=== PATIENT | male | born 1950 | race Caucasian/White ===

== ENCOUNTER 2022-08-03 10:29 | Inpatient (IN) ==
[2022-08-03 11:49] LABS: Basophils % 0.1 %; Hematocrit 30.9 % (37.5-50.1); Hemoglobin 10.4 g/dL (12.9-16.9); Immature Granulocytes % 0.5 % (0-4); Lymphocytes # 0.7 K/mcL (0.6-4.6); Lymphocytes % 3.8 %; Mean Corpuscular HGB Conc 33.7 g/dL (31.6-35.5); Mean Corpuscular Hemoglobin 32.6 pg (28.0-33.3); Mean Corpuscular Volume 96.9 fL (83.0-100.0); Mean Platelet Volume 10.3 fL (9.4-12.4); Monocytes # 0.8 K/mcL (0.0-1.3); Monocytes % 4.4 %; Neutrophils # 16.6 K/mcL (1.6-8.9); Platelet Count 245 K/mcL (140-400); Red Blood Count 3.19 M/mcL (4.19-5.50); Red Cell Distribution Width 13.2 % (11.5-14.5); Segmented Neutrophils % 91.2 %; White Blood Count 18.2 K/mcL (4.3-11.1)
[2022-08-03 12:07] LABS: Alanine Aminotransferase 4 Units/L (7-52); Albumin 2.8 g/dL (3.5-5.7); Albumin/Globulin Ratio 1.2 (1.1-2.2); Alkaline Phosphatase 70 Units/L (34-104); Aspartate Amino Transferase 11 Units/L (13-39); BUN/Creatinine Ratio 16 (6-26); Bilirubin,Total 0.8 mg/dL (0.3-1.0); Blood Urea Nitrogen 14 mg/dL (8-23); Calcium 10.6 mg/dL (8.6-10.3); Carbon Dioxide 22 mEq/L (23-29); Chloride 105 mEq/L (98-107); Globulin 2.4 g/dL (2.4-3.5); Glucose 102 mg/dL (70-105); Osmolality,Calculated 283 (280-300); Potassium 3.5 mEq/L (3.5-5.1); Sodium 136 mEq/L (136-145); Total Protein 5.2 g/dL (6.4-8.9)
[2022-08-03] MEDS ORDERED: Iopamidol - 370 500 ML MLS IVP ONE (12:54)
[2022-08-03] MEDS ORDERED: Clindamycin 600 MG/50 ML 600 MG/50 ML IV.SOLN IVPB STA (14:21)
[2022-08-03] MEDS ORDERED: *HR* HYDROmorphone (PF) 1 MG/ML SYRINGE IVP ONE (14:43)
[2022-08-03] MEDS ORDERED: Melatonin 3 MG TABLET PO PRN (16:55)
[2022-08-03] MEDS ORDERED: Ondansetron 4 MG/2 ML VIAL IVP PRN (16:55)
[2022-08-03] MEDS ORDERED: Acetaminophen 325 MG TABLET PO PRN (16:55)
[2022-08-03] MEDS ORDERED: Naloxone 0.4 MG/ML INJ IVP PRN (16:55)
[2022-08-03] MEDS ORDERED: Lactulose Oral Soln 20 GM/30 ML UDC PO PRN (17:20)
[2022-08-03] MEDS ORDERED: D5% in 0.9% NACL 1,000 ML IVC SCH (17:30)
[2022-08-03] MEDS: Pantoprazole 40 MG VIAL IVP SCH (20:14)
[2022-08-03] MEDS ORDERED: Lactulose Oral Soln 20 GM/30 ML UDC PO SCH (21:00)
[2022-08-03] MEDS: Magnesium Oxide 400 MG TABLET PO SCH (22:58)
[2022-08-03] MEDS: Gabapentin 100 MG CAPSULE PO SCH (22:59)
[2022-08-03] MEDS: Piperacillin/Tazobactam 3.375 GM in 0.9 % Sodium Chloride Mini Bag 100 ML IVPB SCH (23:56)
[2022-08-04 05:09] LABS: Hematocrit 28.2 % (37.5-50.1); Hemoglobin 9.5 g/dL (12.9-16.9); Mean Corpuscular HGB Conc 33.7 g/dL (31.6-35.5); Mean Corpuscular Hemoglobin 32.9 pg (28.0-33.3); Mean Corpuscular Volume 97.6 fL (83.0-100.0); Mean Platelet Volume 10.3 fL (9.4-12.4); Platelet Count 179 K/mcL (140-400); Red Blood Count 2.89 M/mcL (4.19-5.50); Red Cell Distribution Width 13.5 % (11.5-14.5); White Blood Count 15.8 K/mcL (4.3-11.1)
[2022-08-04] MEDS: Pantoprazole 40 MG VIAL IVP SCH ×2 (05:12→18:45)
[2022-08-04 05:29] LABS: Alanine Aminotransferase 4 Units/L (7-52); Albumin 2.5 g/dL (3.5-5.7); Albumin/Globulin Ratio 1.1 (1.1-2.2); Alkaline Phosphatase 59 Units/L (34-104); Aspartate Amino Transferase 9 Units/L (13-39); BUN/Creatinine Ratio 18 (6-26); Bilirubin,Total 0.7 mg/dL (0.3-1.0); Blood Urea Nitrogen 15 mg/dL (8-23); Calcium 10.2 mg/dL (8.6-10.3); Carbon Dioxide 25 mEq/L (23-29); Chloride 105 mEq/L (98-107); Chol/HDL Ratio 3.5 (0-4.9); Cholesterol 87 mg/dL (< 200); Globulin 2.3 g/dL (2.4-3.5); Glucose 122 mg/dL (70-105); HDL Cholesterol 25 mg/dL (40-59); LDL Cholesterol,Calculated 45 mg/dL (< 100); Magnesium 1.3 mg/dL (1.6-2.6); Osmolality,Calculated 282 (280-300); Potassium 3.2 mEq/L (3.5-5.1); Sodium 135 mEq/L (136-145); Total Protein 4.8 g/dL (6.4-8.9); Triglycerides 85 mg/dL (< 150)
[2022-08-04] MEDS ORDERED: Fluconazole 200 MG/100 ML 100 MG/50 ML BAG IVPB SCH (09:00)
[2022-08-04] MEDS: Piperacillin/Tazobactam 3.375 GM in 0.9 % Sodium Chloride Mini Bag 100 ML IVPB SCH ×3 (10:00→23:27)
[2022-08-04] MEDS: Gabapentin 100 MG CAPSULE PO SCH ×2 (10:28→21:20)
[2022-08-04] MEDS: Folic Acid 1 MG TABLET PO SCH (10:28)
[2022-08-04] MEDS: Cholecalciferol (D-3) 1,000 UNIT (25MCG) TABLET PO SCH (10:28)
[2022-08-04] MEDS: Aspirin 81 MG TAB.CHEW PO SCH (10:28)
[2022-08-04] MEDS: Magnesium Oxide 400 MG TABLET PO SCH ×2 (10:28→21:20)
[2022-08-04] MEDS: Thiamine (B-1) 100 MG TABLET PO SCH (10:28)
[2022-08-04] MEDS: Cyanocobalamin (B-12) 1,000 MCG TABLET PO SCH (10:28)
[2022-08-04] MEDS: Fluconazole 200 MG/100 ML 100 MG/50 ML BAG IVPB SCH (11:27)
[2022-08-04] MEDS: D5% in 0.45% NACL w KCl 20 MEQ/1,000 ML MLS IVC SCH (13:02)
[2022-08-04 18:33] LABS: BUN/Creatinine Ratio 17 (6-26); Blood Urea Nitrogen 15 mg/dL (8-23); Calcium 10.1 mg/dL (8.6-10.3); Carbon Dioxide 24 mEq/L (23-29); Chloride 105 mEq/L (98-107); Glucose 124 mg/dL (70-105); Osmolality,Calculated 282 (280-300); Potassium 3.4 mEq/L (3.5-5.1); Sodium 135 mEq/L (136-145)
[2022-08-05] MEDS: D5% in 0.45% NACL w KCl 20 MEQ/1,000 ML MLS IVC SCH ×2 (02:39→14:07)
[2022-08-05 04:26] LABS: Hematocrit 28.5 % (37.5-50.1); Hemoglobin 9.5 g/dL (12.9-16.9); Mean Corpuscular HGB Conc 33.3 g/dL (31.6-35.5); Mean Platelet Volume 10.7 fL (9.4-12.4); Red Blood Count 2.88 M/mcL (4.19-5.50); Red Cell Distribution Width 13.5 % (11.5-14.5); White Blood Count 11.1 K/mcL (4.3-11.1)
[2022-08-05 04:28] LABS: Platelet Count 137 K/mcL (140-400)
[2022-08-05 04:41] LABS: Alanine Aminotransferase 3 Units/L (7-52); Albumin 2.3 g/dL (3.5-5.7); Alkaline Phosphatase 57 Units/L (34-104); Aspartate Amino Transferase 8 Units/L (13-39); BUN/Creatinine Ratio 18 (6-26); Bilirubin,Total 0.6 mg/dL (0.3-1.0); Blood Urea Nitrogen 15 mg/dL (8-23); Calcium 9.8 mg/dL (8.6-10.3); Carbon Dioxide 21 mEq/L (23-29); Chloride 106 mEq/L (98-107); Globulin 2.2 g/dL (2.4-3.5); Glucose 123 mg/dL (70-105); Magnesium 1.6 mg/dL (1.6-2.6); Osmolality,Calculated 282 (280-300); Potassium 3.9 mEq/L (3.5-5.1); Sodium 135 mEq/L (136-145); Total Protein 4.5 g/dL (6.4-8.9)
[2022-08-05] MEDS: Pantoprazole 40 MG VIAL IVP SCH ×2 (06:00→17:34)
[2022-08-05] MEDS: Piperacillin/Tazobactam 3.375 GM in 0.9 % Sodium Chloride Mini Bag 100 ML IVPB SCH ×3 (10:10→23:39)
[2022-08-05] MEDS: Gabapentin 100 MG CAPSULE PO SCH ×2 (10:12→22:59)
[2022-08-05] MEDS: Aspirin 81 MG TAB.CHEW PO SCH (10:12)
[2022-08-05] MEDS: Fluconazole 200 MG/100 ML 100 MG/50 ML BAG IVPB SCH (10:13)
[2022-08-05] MEDS: Cholecalciferol (D-3) 1,000 UNIT (25MCG) TABLET PO SCH (10:33)
[2022-08-05] MEDS: Magnesium Oxide 400 MG TABLET PO SCH ×2 (10:33→22:59)
[2022-08-05] MEDS: Thiamine (B-1) 100 MG TABLET PO SCH (10:33)
[2022-08-05] MEDS: Cyanocobalamin (B-12) 1,000 MCG TABLET PO SCH (10:33)
[2022-08-05] MEDS: Folic Acid 1 MG TABLET PO SCH (10:33)
[2022-08-06 05:08] VITALS: RESP 14
[2022-08-06] MEDS: Pantoprazole 40 MG VIAL IVP SCH ×2 (06:02→16:39)
[2022-08-06 07:04] VITALS: TEMP 97.5
[2022-08-06] MEDS: Gabapentin 100 MG CAPSULE PO SCH ×2 (09:02→20:45)
[2022-08-06] MEDS: Magnesium Oxide 400 MG TABLET PO SCH ×2 (09:02→20:45)
[2022-08-06] MEDS: Aspirin 81 MG TAB.CHEW PO SCH (09:02)
[2022-08-06] MEDS: Piperacillin/Tazobactam 3.375 GM in 0.9 % Sodium Chloride Mini Bag 100 ML IVPB SCH ×2 (09:02→16:39)
[2022-08-06] MEDS: Folic Acid 1 MG TABLET PO SCH (09:03)
[2022-08-06] MEDS: Cholecalciferol (D-3) 1,000 UNIT (25MCG) TABLET PO SCH (09:03)
[2022-08-06] MEDS: Cyanocobalamin (B-12) 1,000 MCG TABLET PO SCH (09:03)
[2022-08-06] MEDS: Thiamine (B-1) 100 MG TABLET PO SCH (09:03)
[2022-08-06] MEDS: Fluconazole 200 MG/100 ML 100 MG/50 ML BAG IVPB SCH (10:23)
[2022-08-06] MEDS ORDERED: Fluconazole 200 MG/100 ML 100 MG/50 ML BAG IVPB SCH ×2 (12:00→16:00)
[2022-08-06] MEDS: D5% in 0.45% NACL w KCl 20 MEQ/1,000 ML MLS IVC SCH (13:38)
[2022-08-06 16:27] VITALS: BP 110/76; PULSE 90; O2SAT 98
== END 2022-08-06 21:03 | disposition short-term general hospital (02) | DRG 177 ==
LOC: EMEROOGRE 10:29 → INPGRE 10:29
PROVIDERS: ADMIT Family Medicine; ATTEND Family Medicine